=== PATIENT | female | born 1980 | race Caucasian/White ===

== ENCOUNTER 2016-10-29 16:20 | Emergency (ER) | payer OTHER ==
--- NOTE | ~2016-10-29 | EKG ---
PATIENT: CORTNEY ANGULO UNIT #: [id number] Ventricular Rate: 90 BPM Atrial Rate: 90 BPM P-R Interval: 184 ms QRS Duration: 104 ms Q-T Interval: 408 ms QTC Calculation(Bezet): 499 ms P Stephan: 71 degrees Calculated R Stephan: 62 degrees Calculated T Stephan: 66 degrees Diagnosis Line: Normal sinus rhythm Diagnosis Line: Prolonged QT Diagnosis Line: Abnormal ECG Diagnosis Line: No previous ECGs available Diagnosis Line: Confirmed by GAIL RODRIGUEZ MD ([id number]) on 10/30/2016 Diagnosis Line: 7:15:43 PM INTERPRETING MD: JENNIFER MODI
--- NOTE | ~2016-10-29 | CR72 ---
[facility] A Service of [facility] & [facility] RADIOLOGY TEXT RESULTS PATIENT: CORTNEY ANGULO LOCATION: [facility] : [birth year] UNIT #: [id number] AGE: [address]: Will Milan DO SEX: F ORDER DR: [id number] [facility] [address] [place], [place] [address] [id number] MR#: [id number] Acc #: [id number] NAME: CORTNEY ANGULO : 1980 SEX: F STUDY DATE/TIME: 10/29/2016 16:55 UNIT: [facility] ROOM: STUDY DESCRIPTION: CR Chest Single View Portable Attending Physician: Will Milan D.O. Ordering Physician: Will Milan D.O. Primary Care Physician: Jose L Fernandes M.D. MEDICAL IMAGING REPORT This report is preliminary unless electronic signature is present EXAM Portable chest INDICATIONS 35-year-old female with chest pain for 1 week. COMPARISON STUDIES No comparisons. FINDINGS The lungs are well expanded. No acute-appearing infiltrate. Heart size normal for technique. Visualized osseous structures are unremarkable. IMPRESSION No active disease. Dictated by... Corona Cunningham M.D. THIS IS AN ELECTRONICALLY VERIFIED REPORT Corona Cunningham M.D. at 10/30/2016 10:03 AM ARS/pcl TD: 10/29/2016 21:46 JOB #: [id number] MEDICAL IMAGING REPORT Page 1 of 1 COPY
[2016-10-29 14:50] LABS: BASOPHIL% 0.5 % (0-2.5); EOSINOPHIL# 0.3 X10e3 (0-0.7); EOSINOPHIL% 3.5 % (0.0-7.0); HEMATOCRIT 39.2 % (35.0-45.0); HEMOGLOBIN 13.1 gm/dL (12.0-16.0); LYMPHOCYTE# 2.2 X10e3 (1.0-3.5); LYMPHOCYTE% 23.5 % (17.0-45.0); MEAN CELL VOLUME 87.4 FL (83-96); MEAN CORPUSCULAR HEMOGLOBIN 29.1 PG (28-34); MEAN CORPUSCULAR HGB CONC 33.3 g/dL (30-36); MEAN PLATELET VOLUME 9.4 FL (6.5-11.5); MONOCYTE# 0.6 X10e3 (0-1.0); MONOCYTE% 6.7 % (3.0-12.0); NEUTROPHIL# 6.2 X10e3 (1.5-7.1); NEUTROPHIL% 65.8 % (40-75); PLATELET COUNT 220 X10e3 (140-420); RED BLOOD COUNT 4.48 X10e (3.90-5.30); WHITE BLOOD COUNT 9.4 X10e3 (4.0-10.5)
[2016-10-29 14:52] LABS: POC - CKMB <1.0 ng/mL (0.0-7.9); POC - TROPONIN <0.05 ng/mL (<=0.05)
[2016-10-29 15:01] LABS: DIFF IND NO
[2016-10-29 15:13] LABS: ALBUMIN SERUM 3.9 g/dL (3.5-5.0); ALKALINE PHOSPHATASE 99 U/L (32-92); ALT (SGPT) 32 U/L (10-40); AST (SGOT) 22 U/L (10-42); BILIRUBIN,TOTAL 0.3 mg/dL (0.2-2.0); BLOOD UREA NITROGEN 11 mg/dL (9-23); CALCIUM SERUM 8.9 mg/dL (8.4-10.2); CARBON DIOXIDE 27 mmol/L (22-31); CHLORIDE 106 mmol/L (100-111); CREATININE SERUM 0.5 mg/dL (0.6-1.4); GLOM FILT RATE Estimated 125.4 mL/min (>60); GLUCOSE FASTING 120 mg/dL (70-110); POTASSIUM 3.7 mmol/L (3.5-5.1); PROTEIN TOTAL SERUM 7.2 g/dL (6.0-8.3); SODIUM 140 mmol/L (135-145)
[2016-10-29 15:15] LABS: BILIRUBIN, DIRECT <0.1 mg/dL (0.0-0.2); BILIRUBIN,INDIRECT 0.2 mg/dL (0.0-0.9)
[~2016-10-29 16:20] MED LIST: AMOXICILLIN875 MG PO; CLARITIN D
[2016-10-29 16:28] LABS: POC - CKMB <1.0 ng/mL (0.0-7.9); POC - TROPONIN <0.05 ng/mL (<=0.05)
== END 2016-10-29 18:15 | disposition home or self-care (01) ==
LOC: CED 16:20
PROVIDERS: Emergency Medicine
DX: R07.89 Other chest pain (principal); F17.200 Nicotine dependence, unspecified, uncomplicated
CPT/HCPCS: 36415; 71010; 80048; 80076; 82553; 84484; 84703; 85025; 85379; 93005; 99284

== ENCOUNTER 2016-11-11 10:34 | Emergency (ER) | payer OTHER | END 2016-11-11 11:16 | disposition home or self-care (01) | LOC: SED 10:34 | DX: S46.912A Strain of unspecified muscle, fascia and tendon at shoulder and upper arm level, left arm, initial encounter (principal); F17.200 Nicotine dependence, unspecified, uncomplicated; Z98.890 Other specified postprocedural states; X58.XXXA Exposure to other specified factors, initial encounter; Y92.9 Unspecified place or not applicable | CPT/HCPCS: 99283 ==